=== PATIENT | female | born 1960 | race Caucasian/White ===

== ENCOUNTER → 2024-07-07 13:29 | Outpatient (REF) | payer OTHER, SELFPAY ==
[2024-07-07 15:13] LABS: Urine Albumin 1+ (Neg - Trace); Urine Bilirubin Negative (Negative); Urine Character Clear (Clear); Urine Color Yellow; Urine Glucose Negative (Negative); Urine Ketone Negative (Negative); Urine Leukocyte 2+ (Negative); Urine Nitrite Negative (Negative); Urine Occult Blood 2+ (Negative); Urine Urobilinogen Negative (Neg - 1+)
[2024-07-07 16:07] LABS: Urine Calcium Oxalate Crystals Present; Urine Squamous Cell 0-2 /LPF (Few)
[2024-07-07 16:08] LABS: Urine Bacteria Moderate (Negative)
== END ==
LOC: REG 13:29
PROVIDERS: ATTENDING PHYSICIAN Nurse Practitioner Family
DX: N30.00 Acute cystitis without hematuria (principal)
CPT/HCPCS: 81003; 81015; 87086

== ENCOUNTER 2024-10-27 13:41 | Emergency (ER) | payer OTHER, SELFPAY ==
[2024-10-27 13:44] VITALS: BP 119/77
[2024-10-27 14:32] LABS: Hematocrit 40.2 % (37.0-47.0); Hemoglobin 14.4 g/dL (12.0-16.0); Mean Corp Hgb Conc. 35.8 g/dL (33.0-37.0); Mean Corpuscular Volume 88.7 fL (81.0-99.0); Nucleated Red Blood Cells % 0 %; Platelet Count 181 10^3/uL (130-400); Red Cell Dist. Width 12.6 % (11.5-14.5)
[2024-10-27 16:29] VITALS: BMI 35.0
[2024-10-27 16:30] VITALS: BP 109/79
[2024-10-27 16:33] VITALS: BP 109/79
--- NOTE | 2024-10-27 16:40 | ED.GENMED ---
History of Present Illness
General
Chief Complaint: Abdominal Symptoms
Time Seen by Provider: 10/27/24 16:18
History of Present Illness
History of Present Illness:
64-year-old female with history of breast cancer status post lumpectomy and lymph node dissection presents to the emergency department for evaluation of intractable nausea and vomiting associated with headache and fever for the past 4 to 5 days.
Saw her primary care physician yesterday was diagnosed with sinusitis and placed on Augmentin, reports no symptom improvement after 2 doses. Unable to tolerate much p.o. food or fluids due to vomiting. Denies any significant abdominal pain,
describes it only as 'discomfort' from excessive vomiting. No diarrhea. Denies any recent or remote tick bites
Review of Systems
Review of Systems
Allergies reviewed?: Yes
All Other Systems: ROS reviewed and negative except as documented in HPI and ROS
Phy Exam
Physical Exam
Physical Exam:
GEN: Well appearing, NAD, WDWN
HEENT: Oral mucosa moist, no scleral icterus
Cardiac: Regular rate and rhythm, no murmur
Lung: No respiratory distress, no tachypnea
Abdomen: Soft, grossly nontender
MSK: No gross deformity or injuries
Skin: Good color, no pallor or jaundice, no rashes
Neuro: AO x3, moves all extremities freely
Psych: Calm, cooperative
Course
Orders/Labs/Results
Orders:
Orders
10/27/24 13:55
Complete Blood Count/With Diff Urgent
Comprehensive Metabolic Panel Urgent
Lipase Urgent
Influenza A+B Rapid Molecular Urgent
REBECA Source: Nasal Swab
Specimen Description:
10/27/24 16:40
0.9% Sodium Chloride 1000 ml [Nss] 1,000 ml IV BOLUS
Ondansetron Injectable [Zofran] 4 mg IV NOW STA
10/27/24 18:18
Lactated Ringers [Lr] 1,000 ml IV BOLUS
10/27/24 19:55
Ketorolac [Toradol] 15 mg IV NOW STA
10/27/24 20:14
Ondansetron Injectable [Zofran] 4 mg IV NOW STA
Abnormal Lab Results
10/27/24
13:55
WBC 13.4 H 10^3/uL
(4.8-10.8)
MCH 31.8 H pg
(27.0-31.0)
MPV 10.8 H fL
(7.4-10.4)
Abs Immat Gran (auto) 0.1 H 10^3/uL
(0-0.05)
Absolute Neuts (auto) 10.8 H 10^3/uL
(1.4-6.5)
Absolute Lymphs (auto) 0.4 L 10^3/uL
(1.2-3.4)
Absolute Monos (auto) 1.4 H 10^3/uL
(0.1-0.6)
Immature Gran % 0.8 H %
(0-0.5)
Neutrophils % 80.4 H %
(42.2-75.2)
Lymphocytes % 3.1 L %
(20.5-51.1)
Monocytes % 10.2 H %
(1.7-9.3)
Sodium 132 L mmol/L
(135-145)
Carbon Dioxide 17 L mmol/L
(22-30)
BUN 26 H mg/dl
(7-17)
Creatinine 1.5 H mg/dL
(0.6-1.0)
Glucose 155 H mg/dl
(70-99)
Calcium 12.4 H mg/dl
(8.4-10.2)
ALT 38 H U/L
(0-35)
10/27/24 13:55
10/27/24 13:55
Vital Signs
Initial and Last Documented VS:
Initial Vital Signs
Temp Pulse Resp BP Pulse Ox
99.7 F 83 20 119/77 97
10/27/24 13:44 10/27/24 13:44 10/27/24 13:44 10/27/24 13:44 10/27/24 13:44
Last Documented Vital Signs
Temp Pulse Resp BP Pulse Ox
100.0 F 86 20 115/59 93
10/27/24 18:53 10/27/24 16:30 10/27/24 16:30 10/27/24 21:48 10/27/24 21:47
MDM/Problems Addressed
MDM/Problems Addressed:
Patient was treated with 2 L of crystalloid via IV as well as multiple antiemetics. She gradually improved and was able to tolerate p.o. fluids. She was noted to have a low-grade fever at time of discharge. Suspect self-limited viral syndrome,
she was started on Augmentin however do not feel strongly that her symptoms represent sinusitis thus have encouraged her to discontinue use of this. Clinically improved at time of discharge. She has no abdominal tenderness on exam warranting
imaging
*Pulse Oximetry
SaO2: 95
Oxygen Mode of Delivery: Room air
Patient hypoxic: no
*Critical Care Note
Total Time (30-74mins, 75-104mins- exclusive of procedures): Not Applicable
ED Attending Note
-
Portions of this chart may have been created with voice recognition software.� Occasional wrong word or��sound alike� substitutions may have occurred due to the inherent limitations of voice recognition software.
Discharge Plan
Departure
Patient Disposition: Home (Routine Discharge)
Date of Disposition: 10/27/24
Time of Disposition: 21:35
Patient with high blood pressure during this ER visit?: No
Discharge Problem:
Nausea & vomiting
Instructions: Nausea and Vomiting, Adult (DC)
Prescriptions:
New
ondansetron 4 mg tablet,disintegrating
4 mg PO Q8H PRN (Reason: nausea and vomiting) Qty: 10 0RF
No Action
multivitamin [Daily Value] 1 EACH tablet
1 ea PO DAILY
ibuprofen 200 MG tablet
3 - 4 tab PO Q6H PRN (Reason: pain)
Referrals:
Kobe Mina PA [Family Provider, Family Practice]
Interventions
Interventions:
*Risk Screen - Suicide Last Done: 10/27/24 13:44
*General Assessment Last Done: 10/27/24 13:44
*Neglect/Abuse Screening Last Done: 10/27/24 13:44
*ED- Fall Risk Assessment Last Done: 10/27/24 16:54
*ED COVID-19 Vaccine History Last Done: 10/27/24 16:54
*Nursing Disposition Last Done: 10/27/24 21:55
NW-Hlgexg-Sklkbzlolu Assessment Last Done: 10/27/24 16:34
Discharge Date and Time
Discharge Date/Time: 10/27/24 21:55
Print Language: MOROCCAN
[2024-10-27] MEDS: NSS 1000 IV (16:51)
[2024-10-27] MEDS: ZOFRAN 4 MG IV ×2 (16:52→20:21)
[2024-10-27 17:21] LABS: ALT (SGPT) 38 U/L (0-35); AST (SGOT) 30 U/L (14-36); Albumin 3.6 g/dl (3.5-5.0); Alkaline Phosphatase 123 U/L (38-126); Blood Urea Nitrogen 26 mg/dl (7-17); Calcium 12.4 mg/dl (8.4-10.2); Carbon Dioxide 17 mmol/L (22-30); Chloride 104 mmol/L (98-107); Estimated Creatinine Clearance 49 ml/min; Glucose 155 mg/dl (70-99); Lipase 44 U/L (23-300); Potassium 3.9 mmol/L (3.5-5.1); Sodium 132 mmol/L (135-145); Total Protein 6.5 g/dl (6.3-8.2); eGFR 38.67
[2024-10-27 17:49] VITALS: BP 129/70
[2024-10-27 18:00] VITALS: BP 123/80
[2024-10-27] MEDS: LR 1000 IV (18:49)
[2024-10-27] MEDS: TORADOL 15 MG IV (20:02)
[2024-10-27 21:48] VITALS: BP 115/59
== END 2024-10-27 21:55 | disposition home or self-care (01) ==
LOC: EMR 13:41
PROVIDERS: Emergency Medicine; EMERGENCY PHYSICIAN Emergency Medicine; FAMILY PHYSICIAN Physician Assistant
DX: R11.2 Nausea with vomiting, unspecified (principal); R51.9 Headache, unspecified; R50.9 Fever, unspecified; Z85.3 Personal history of malignant neoplasm of breast
CPT/HCPCS: 99283; 96374; 96375; 96376; 96361; 80053; 83690; 85025; 87502